=== PATIENT | female | born 1970 | race Caucasian/White ===

== ENCOUNTER 2017-01-24 16:52 | Emergency (ER) | payer OTHER ==
[2017-01-24 16:55] VITALS: BMI 29.2
[2017-01-24 17:06] VITALS: BP 121/81; PULSE 84; TEMP 98.3; O2SAT 100
--- NOTE | 2017-01-24 17:30 | C.PDOC ---
History Of Present Illness 46 y/o female presents to the emergency department complaining of nasal congestion. 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 Patient denies fever, throat pain, chest pain, shortness of breath, or other complaints. Time Seen by Provider: 01/24/17 17:21 Chief Complaint (Nursing): Shortness Of Breath History Per: Patient History/Exam Limitations: None Onset/Duration Of Symptoms: Days, Persistent Current Symptoms Are (Timing): Still Present Past Medical History Reviewed: Historical Data, Nursing Documentation, Vital Signs Vital Signs: Last Vital Signs Temp 98.3 F 01/24/17 17:42 Pulse 84 01/24/17 17:42 Resp 18 01/24/17 17:42 BP 121/81 01/24/17 17:42 Pulse Ox 100 01/24/17 17:42 - Medical History PMH: No Chronic Diseases Surgical History: No Surg Hx Family History: States: Unknown Family Hx - Social History Hx Tobacco Use: No Hx Alcohol Use: Yes Hx Substance Use: No - Immunization History Hx Tetanus Toxoid Vaccination: No Hx Influenza Vaccination: No Hx Pneumococcal Vaccination: No Review Of Systems Except As Marked, All Systems Reviewed And Found Negative. Constitutional: Negative for: Fever ENT: Positive for: Nose Congestion. Negative for: Throat Pain Cardiovascular: Negative for: Chest Pain Respiratory: Negative for: Shortness of Breath Physical Exam - Physical Exam Appears: Non-toxic, No Acute Distress Skin: Normal Color, Warm, Dry Head: Atraumatic, Normacephalic Eye(s): bilateral: Normal Inspection, PERRL Ear(s): Bilateral: Normal Nose: Normal, No Discharge, No Other (erythema) Oral Mucosa: Moist Throat: Normal, No Erythema, No Exudate Neck: Normal ROM Chest: Symmetrical Cardiovascular: Rhythm Regular Respiratory: Normal Breath Sounds, No Rales, No Rhonchi, No Wheezing Extremity: Normal ROM Neurological/Psych: Oriented x3, Normal Speech, Normal Cognition ED Course And Treatment ECG: Interpreted By Me ECG Rhythm: Sinus Rhythm ECG Interpretation: Normal Rate From EC (bpm) O2 Sat by Pulse Oximetry: 100 (ra) Pulse Ox Interpretation: Normal Reevaluation Time: 17:31 Reassessment Condition: Improved Medical Decision Making Medical Decision Making: works in an industrial freezer with food. nasal congestion none now. nasal decongestants educated normal exam. Deferred w/u with informed consent. Disposition Doctor Will See Patient In The: Office Counseled Patient/Family Regarding: Studies Performed, Diagnosis - Disposition Referrals: [facility] [Outside] Disposition: HOME/ ROUTINE Disposition Time: 17:29 Condition: GOOD Additional Instructions: compra medicamentos para quitar el congestion' nasal. Sigue en la [facility] necessario. Instructions: Decongestant/Expectorant (By mouth), Pseudoephedrine (By mouth) Print Language: MONGOLIAN - Clinical Impression Clinical Impression: Nasal congestion - Scribe Statement The provider has reviewed the documentation as recorded by the Scribe (Deandra Conteh) Provider Attestation: All medical record entries made by the Scribe were at my direction and personally dictated by me. I have reviewed the chart and agree that the record accurately reflects my personal performance of the history, physical exam, medical decision making, and the department course for this patient. I have also personally directed, reviewed, and agree with the discharge instructions and disposition.
[2017-01-24 17:42] VITALS: RESP 18
--- NOTE | 2017-01-26 06:30 | CARD ---
APPROVED REPORT EKG Measurement Heart [id number] <Conclusion> Normal sinus rhythm Incomplete right bundle branch block Borderline ECG
== END 2017-01-24 17:40 | disposition home or self-care (01) ==
LOC: C.ER 16:52
DX: R09.81 Nasal congestion (principal)

== ENCOUNTER 2017-02-25 11:31 | Emergency (ER) | payer SELFPAY ==
[2017-02-25 11:31] VITALS: BMI 29.2
[2017-02-25 11:38] VITALS: TEMP 98.1; O2SAT 98
[2017-02-25] MEDS ORDERED: Naproxen 550 mg Tab PO STA (12:07)
[2017-02-25] MEDS ORDERED: Naproxen 550 mg Tab PO ONE (12:20)
--- NOTE | 2017-02-25 12:41 | C.PDOC ---
History Of Present Illness A 46 year old female presents to the emergency room with complaints of left heel pain that started 2 weeks ago. Patient notes that the pain is worst with ambulation. Patient took Advil for pain relief last night. Patient denies any history of similar symptoms, any calf pain, no trauma, any sensory changes, numbness, weakness, or any other complaints. Time Seen by Provider: 02/25/17 11:42 Chief Complaint (Nursing): Lower Extremity Problem/Injury History Per: Patient History/Exam Limitations: no limitations Onset/Duration Of Symptoms: Other (1 week) Current Symptoms Are (Timing): Still Present Severity: Mild Recent travel outside of the [place]: No Past Medical History Reviewed: Historical Data, Nursing Documentation, Vital Signs Vital Signs: Last Vital Signs Temp 98.1 F 02/25/17 11:36 Pulse 85 02/25/17 11:36 Resp 16 02/25/17 11:36 BP 113/77 02/25/17 11:36 Pulse Ox 98 02/25/17 13:11 Family History: States: Unknown Family Hx - Social History Hx Tobacco Use: No Hx Alcohol Use: Yes Hx Substance Use: No - Immunization History Hx Tetanus Toxoid Vaccination: No Hx Influenza Vaccination: No Hx Pneumococcal Vaccination: No Review Of Systems Except As Marked, All Systems Reviewed And Found Negative. Constitutional: Negative for: Fever, Chills Gastrointestinal: Negative for: Nausea, Vomiting, Diarrhea Musculoskeletal: Positive for: Other (Left heel pain) Neurological: Negative for: Weakness, Numbness Physical Exam - Physical Exam Appears: Well, Non-toxic, No Acute Distress Skin: Normal Color, Warm, Dry, No Rash Head: Atraumatic, Normacephalic Eye(s): bilateral: Normal Inspection, EOMI Ear(s): Bilateral: Normal Nose: Normal Oral Mucosa: Moist Neck: Normal ROM, No Midline Cervical Tenderness, No Paracervical Tenderness, Supple Chest: Symmetrical Cardiovascular: Rhythm Regular Respiratory: Normal Breath Sounds, No Rales, No Rhonchi, No Wheezing Back: No CVA Tenderness, No Vertebral Tenderness, No Paraspinal Tenderness Extremity: Normal ROM, Tenderness (Tenderness at the posterior aspect of the left heel. No plantar tenderness. NO achilles tendon indent. 5/5 strength strength against resistance though exacerbates pain. No change in skin color. Strong pulses. Cap refill <2 sec.), No Pedal Edema, No Calf Tenderness, No Deformity, No Swelling, No Other (No erythema. No warmth.) Pulses: Left Dorsalis Pedis: Normal, Right Dorsalis Pedis: Normal Neurological/Psych: Oriented x3, Normal Speech, Normal Cognition, Normal Motor, Normal Sensation Gait: Steady ED Course And Treatment O2 Sat by Pulse Oximetry: 98 - Other Rad Left ankle X-Ray: Interpreted by Me, Viewed By Me Interpretation: Heel X-ray Impression: As read by me; no fractures or dislocations. Oesteophyte noted where pt has tenderness. Progress Note: Patient was given Naproxen. Bret wrap and Velcro splint applied by power lineman technician. On reassessment, patient is resting comfortably, and is in no acute distress. Patient is able to ambulate without difficulty and denies any other pain, numbness, weakness, or any other complaints. Patient was instructed to follow up with Ortho in 1-2 days for further evaluation. Disposition - Disposition Referrals: [facility] at [facility] [Outside] Franko Garland MD [Staff Provider] - Disposition: HOME/ ROUTINE Disposition Time: 12:42 Condition: STABLE Additional Instructions: Rest, ice and elevate the area. Follow up with bone doctor in 1-2 days. Return to ER if symptoms persist or worsen. Prescriptions: Naproxen [Naprosyn] 1 tab PO BID PRN #20 tab PRN Reason: Pain Instructions: Tendinitis (ED) Forms: Work Excuse Print Language: GUYANESE - Clinical Impression Clinical Impression: Tendonitis - Scribe Statement The provider has reviewed the documentation as recorded by the Raina Guzman Provider Scribe Attestation: All medical record entries made by the Raina were at my direction and personally dictated by me. I have reviewed the chart and agree that the record accurately reflects my personal performance of the history, physical exam, medical decision making, and the department course for this patient. I have also personally directed, reviewed, and agree with the discharge instructions and disposition.
--- NOTE | 2017-02-25 13:13 | RAD ---
PROCEDURE: Right Ankle Radiographs. HISTORY: pain COMPARISON: None FINDINGS: BONES: No acute displaced fracture. Degenerative changes. Calcaneal enthesophyte. JOINTS: No dislocation. SOFT TISSUES: Unremarkable. No evidence of radiopaque foreign body. OTHER FINDINGS: None. IMPRESSION: No acute displaced fracture, dislocation, or significant joint effusion identified. If symptoms persist or if there is clinical concern, x-ray follow-up in 7-10 days should be considered.
[2017-02-25 13:40] VITALS: BP 118/65; PULSE 78; RESP 18
== END 2017-02-25 13:35 | disposition home or self-care (01) ==
LOC: C.ER 11:31
DX: M77.52 Other enthesopathy of left foot and ankle (principal)

== ENCOUNTER 2017-06-25 12:43 | Emergency (ER) | payer OTHER ==
[2017-06-25 12:50] VITALS: BMI 30.2
[2017-06-25 12:53] VITALS: TEMP 98.2; O2SAT 98
--- NOTE | 2017-06-25 12:57 | C.PDOC ---
History Of Present Illness 46 year old female presents to the ED with complaints of pain to the bottom of her right foot that worsens when ambulating for the last four days. Patient has taken two Motrin tablets with no relief. She notes a similar pain in the back of the right foot three months prior but states pain is now in a different location. Patient denies trauma, numbness, or leg pain. Time Seen by Provider: 06/25/17 12:55 Chief Complaint (Nursing): Lower Extremity Problem/Injury History Per: Patient History/Exam Limitations: no limitations Onset/Duration Of Symptoms: Days (4 days ) Current Symptoms Are (Timing): Still Present Recent travel outside of the [place]: No Past Medical History Reviewed: Historical Data, Nursing Documentation, Vital Signs Vital Signs: Last Vital Signs Temp 98.2 F 06/25/17 12:50 Pulse 88 06/25/17 13:35 Resp 18 06/25/17 13:35 BP 110/65 06/25/17 13:35 Pulse Ox 98 06/25/17 15:50 Family History: States: Other Other Family History: Non-contributory. - Social History Hx Tobacco Use: No Hx Alcohol Use: Yes Hx Substance Use: No - Immunization History Hx Tetanus Toxoid Vaccination: No Hx Influenza Vaccination: No Hx Pneumococcal Vaccination: No Review Of Systems Constitutional: Negative for: Fever, Chills Cardiovascular: Negative for: Chest Pain Respiratory: Negative for: Shortness of Breath Gastrointestinal: Negative for: Nausea, Vomiting Musculoskeletal: Positive for: Foot Pain (right foot pain) Neurological: Negative for: Weakness, Numbness Physical Exam - Physical Exam Appears: Non-toxic, No Acute Distress Skin: Warm, Dry Head: Atraumatic, Normacephalic Eye(s): bilateral: Normal Inspection, EOMI Oral Mucosa: Moist Neck: Supple Chest: Symmetrical, No Deformity Extremity: Normal ROM, Tenderness (insertion site of plantar fascia ), No Pedal Edema, No Calf Tenderness, Capillary Refill (good capillary refill, less than two seconds), No Deformity, No Swelling, Other (no erythema to the right foot) Neurological/Psych: Oriented x3, Normal Speech, Normal Cognition, Normal Motor, Normal Sensation Gait: Steady ED Course And Treatment O2 Sat by Pulse Oximetry: 98 (room air ) Progress Note: Patient was given Toradol and rohit bandage was applied by CLINICAL NURSE REVIEWER. Disposition - Disposition Referrals: [facility] at [facility] [Outside] Disposition: HOME/ ROUTINE Disposition Time: 13:37 Condition: GOOD Additional Instructions: Please follow up with your doctor. Return to the ER for any worsening symptoms or for any other concerns. Prescriptions: Naproxen [Naprosyn] 500 mg PO Q12H PRN #10 tablet PRN Reason: Pain, Moderate (4-7) Instructions: Plantar Fasciitis (ED) Forms: Gen Discharge Inst Afghan, [facility] (Tongan) Print Language: YORUBA - Clinical Impression Clinical Impression: Plantar fasciitis - Scribe Statement The provider has reviewed the documentation as recorded by the Scribe Yolie Salmeron All medical record entries made by the Rudolphibe were at my direction and personally dictated by me. I have reviewed the chart and agree that the record accurately reflects my personal performance of the history, physical exam, medical decision making, and the department course for this patient. I have also personally directed, reviewed, and agree with the discharge instructions and disposition.
--- NOTE | 2017-06-25 13:22 | RAD ---
PROCEDURE: Right Foot Radiographs. HISTORY: pain plantar aspect COMPARISON: None. FINDINGS: BONES: No fracture. Posterior calcaneal cortical spurring - blending Achilles enthesophyte JOINTS: Minimal 1st metatarsal-phalangeal joint arthrosis SOFT TISSUES: Normal. OTHER FINDINGS: None. IMPRESSION: No fracture. Posterior calcaneal cortical spurring- blending Achilles tendon insertional enthesophyte
[2017-06-25 13:37] VITALS: BP 110/65; PULSE 88; RESP 18
== END 2017-06-25 13:38 | disposition home or self-care (01) ==
LOC: C.ER 12:43
DX: M72.2 Plantar fascial fibromatosis (principal)
CPT/HCPCS: 73630; 96372; 99284; J1885

== ENCOUNTER 2017-11-11 16:19 | Emergency (ER) | payer SELFPAY ==
[2017-11-11 16:19] VITALS: BMI 30.2
[2017-11-11] MEDS ORDERED: Sodium Chloride 0.9% 1,000 ML IV STA (17:48)
--- NOTE | 2017-11-11 17:56 | C.PDOC ---
History Of Present Illness <Hannah Mosquera - Last Filed: 11/11/17 19:06> <Merline Gaines - Last Filed: 11/11/17 20:07> <Zafar Stevens - Last Filed: 11/12/17 16:32> 46 year old female presents to ED for evaluation of shortness of breath for the past month. Pt also states that she was stung by an insect to the right side of her abdomen, and has developed an area of redness and pain to the same region. Notes that area is growing larger in size and is more painful. Otherwise, denies cough, sputum, chest pain, n/v/d, or fever. Translated [place]er by Gisselle Ramos (Hannah Mosquera) History Per: Patient, Advertising Assistant History/Exam Limitations: no limitations, language barrier (manager sales training used) Onset/Duration Of Symptoms: Days Current Symptoms Are (Timing): Still Present Associated Symptoms: denies: Sweating, Chest Pain, Bloody Cough, Productive Cough, Heart Racing, Leg/Calf Pain, Ankle/Leg Swelling, Dizziness, Light- headedness, Tingling In Hands Or Face, Musle Spasms In Hands Or Feet Recent travel outside of the [place]: No Additional History Per: Patient <Hannah Mosquera - Last Filed: 11/11/17 19:06> <Merline Gaines - Last Filed: 11/11/17 20:07> <Zafar Stevens M - Last Filed: 11/12/17 16:32> Time Seen by Provider: 11/11/17 16:46 Chief Complaint (Nursing): Shortness Of Breath Past Medical History Reviewed: Historical Data, Nursing Documentation, Vital Signs Family History: States: Unknown Family Hx - Social History Hx Tobacco Use: No Hx Alcohol Use: Yes Hx Substance Use: No - Immunization History Hx Tetanus Toxoid Vaccination: No Hx Influenza Vaccination: No Hx Pneumococcal Vaccination: No <Hannah Mosquera - Last Filed: 11/11/17 19:06> Vital Signs: Last Vital Signs Temp 97.9 F 11/11/17 20:22 Pulse 85 11/11/17 20:22 Resp 20 11/11/17 20:22 BP 119/75 11/11/17 20:22 Pulse Ox 100 11/11/17 20:22 Review Of Systems Except As Marked, All Systems Reviewed And Found Negative. Constitutional: Negative for: Fever, Chills Cardiovascular: Negative for: Chest Pain, Palpitations, Light Headedness Respiratory: Positive for: Shortness of Breath. Negative for: Cough, Hemoptysis , Sputum Gastrointestinal: Negative for: Nausea, Vomiting, Diarrhea, Constipation Skin: Positive for: Other (area of redness to abdomen) Neurological: Negative for: Headache, Dizziness <Hannah Mosquera - Last Filed: 11/11/17 19:06> Physical Exam - Physical Exam Appears: Non-toxic, No Acute Distress Skin: Warm, Dry, Other (single pustule with mild surrounding erythema about 3cm in diameter) Head: Atraumatic, Normacephalic Eye(s): bilateral: Normal Inspection Oral Mucosa: Moist Neck: Supple Cardiovascular: Rhythm Regular, No Murmur Respiratory: Decreased Breath Sounds (bilaterally), No Accessory Muscle Use, No Rales, No Rhonchi, No Wheezing Gastrointestinal/Abdominal: Soft, No Tenderness Extremity: Normal ROM, No Pedal Edema, No Deformity Neurological/Psych: Oriented x3, Normal Speech <Hannah Mosquera - Last Filed: 11/11/17 19:06> ED Course And Treatment - Laboratory Results Result Diagrams: 11/11/17 18:48 11/11/17 18:48 O2 Sat by Pulse Oximetry: 98 (RA) Pulse Ox Interpretation: Normal - Radiology CXR: Interpreted by Me, Viewed By Me CXR Interpretation: Yes: No Acute Disease Progress Note: Blood work, UA, abdomen ultrasound, CXR ordered and reviewed. Patient was given IV fluids. On reassessment, patient is resting comfortably with no wheezing, chest pain, or retractions. Breath sounds have improved. Patient is alert and oriented x 3. <Hannah Mosquera - Last Filed: 11/11/17 19:06> - Laboratory Results Result Diagrams: 11/11/17 18:48 11/11/17 18:48 Pulse Ox Interpretation: Normal Progress Note: Pt states she feels better and wants to go home, Speaking in complete sentences Reevaluation Time: 20:07 Reassessment Condition: Improved <Merline Gaines - Last Filed: 11/11/17 20:07> - Laboratory Results Result Diagrams: 11/11/17 18:48 11/11/17 18:48 <Zafar Stevens - Last Filed: 11/12/17 16:32> Medical Decision Making <Hannah Mosquera - Last Filed: 11/11/17 19:06> <Merline Gaines - Last Filed: 11/11/17 20:07> <Zafar Stevens - Last Filed: 11/12/17 16:32> Medical Decision Making: patient was s/o to Dr. Gaines at 1900 pending labs, reevaluation and disposition (Zafar Stevens) Disposition - Disposition Disposition Time: 19:06 <Hannah Mosquera - Last Filed: 11/11/17 19:06> Counseled Patient/Family Regarding: Studies Performed, Diagnosis, Need For Followup, Rx Given <Merline Gaines - Last Filed: 11/11/17 20:07> <Zafar Stevens - Last Filed: 11/12/17 16:32> - Disposition Referrals: [facility] [Outside] [facility] [Outside] Disposition: HOME/ ROUTINE Condition: FAIR Additional Instructions: Please return if symptoms recur Prescriptions: Albuterol HFA [Ventolin HFA 90 mcg/actuation (8 g)] 2 puff IH [id number] #1 puff Prednisone [Deltasone] 20 mg PO DAILY #5 tablet Instructions: Reactive Airways Disease (DC), Dyspnea (GEN) Forms: Testin (Togolese) Print Language: CAMBODIAN - Clinical Impression Clinical Impression: SOB (shortness of breath), RUQ abdominal pain - PA / ENVIRONMENTAL SERVICES AIDE / Resident Statement MD/DO has reviewed & agrees with the documentation as recorded. - Scribe Statement The provider has reviewed the documentation as recorded by the Scribe <Hannah Mosquera - Last Filed: 11/11/17 19:06> <Merline Gaines - Last Filed: 11/11/17 20:07> <Zafar Stevens - Last Filed: 11/12/17 16:32> - Scribe Statement Zeenat Martinez All medical record entries made by the Scribe were at my direction and personally dictated by me. I have reviewed the chart and agree that the record accurately reflects my personal performance of the history, physical exam, medical decision making, and the department course for this patient. I have also personally directed, reviewed, and agree with the discharge instructions and disposition. (Hannah Mosquera) Physician Patient Turnover Patient Signed Over To: Merline Gaines Handoff Comments: labs and dispo are pending <Hannah Mosquera - Last Filed: 11/11/17 19:06>
[2017-11-11] MEDS ORDERED: Sodium Chloride 0.9% 1,000 ML ONE (18:11)
--- NOTE | 2017-11-11 18:18 | RAD ---
HISTORY: SOB, s/p hysterectomy COMPARISON: 12/21/2015. TECHNIQUE: Chest PA and lateral FINDINGS: LUNGS: No active pulmonary disease. PLEURA: No significant pleural effusion identified. No pneumothorax apparent. CARDIOVASCULAR: Normal. OSSEOUS STRUCTURES: No significant abnormalities. VISUALIZED UPPER ABDOMEN: Normal. OTHER FINDINGS: None. IMPRESSION: No active disease. No significant interval change compared to the prior examination(s).
--- NOTE | 2017-11-11 18:41 | US ---
HISTORY: Pain RUQ, right flank COMPARISON: None. TECHNIQUE: Sonographic evaluation of the right upper quadrant of the abdomen. FINDINGS: LIVER: Measures 12.0 cm in length. Patent portal vein. Portal venous flow: Hepatopetal. Unremarkeable echogenicity of the liver parenchyma. No mass. No intrahepatic bile duct dilatation. GALLBLADDER: Unremarkable. No gallstones. COMMON BILE DUCT: Measures 3.7 mm. No stones. No dilatation. PANCREAS: Unremarkable as visualized. No mass. No ductal dilatation. RIGHT KIDNEY: Measures 4.4 x 9.9 cm in length. Normal echogenicity. No calculus, mass, or hydronephrosis. AORTA: No aneurysmal dilatation. IVC: Unremarkable. OTHER FINDINGS: None . IMPRESSION: No significant or acute findings to account for/ related to the clinical presentation.
[2017-11-11 18:52] LABS: BASO # 0.1 K/uL (0.0-0.2); BASO % 0.6 % (0.0-2.0); EOS # 0.6 K/uL (0.0-0.7); EOS % 5.2 % (0.0-4.0); HEMOGLOBIN 14.2 g/dL (11.0-16.0); LYMPH % 28.2 % (20.0-40.0); MEAN CELL VOLUME 81.4 fL (81.0-99.0); MEAN CORPUSCULAR HEMOGLOBIN 26.9 pg (27.0-31.0); MEAN PLATELET VOLUME 9.1 fL (7.2-11.7); MONO # 0.6 K/uL (0.0-0.8); MONO % 5.2 % (0.0-10.0); NEUT # 6.6 K/uL (1.8-7.0); NEUT % 60.8 % (50.0-75.0); NRBC % 0.1 % (0.0-2.0); RBC 5.29 Mil/uL (3.80-5.20); RED CELL DISTRIBUTION WIDTH 13.6 % (11.5-14.5); WHITE BLOOD COUNT 10.8 K/uL (4.8-10.8)
[2017-11-11 18:59] LABS: INR 1.1; PARTIAL THROMBOPLASTIN TIME 35 SECONDS (21-34); PROTHROMBIN TIME 13.1 SECONDS (9.7-12.2)
[2017-11-11 19:02] LABS: SQUAMOUS EPITHIAL 3 /hpf (0-5); URINE BACTERIA RARE (<OCC); URINE BILIRUBIN NEGATIVE (NEGATIVE); URINE BLOOD NEGATIVE (NEGATIVE); URINE CLARITY Clear (Clear); URINE COLOR Yellow (YELLOW); URINE GLUCOSE (UA) NORMAL (Normal); URINE LEUKOCYTE ESTERASE NEG Leu/uL (Negative); URINE NITRATE NEGATIVE (NEGATIVE); URINE PROTEIN NEGATIVE (NEGATIVE); URINE UROBILINOGEN NORMAL mg/dL (0.2-1.0)
[2017-11-11 19:03] LABS: ALB/GLOB RATIO 1.2 (1.0-2.1); ALBUMIN 4.2 g/dL (3.5-5.0); ALT/SGPT 40 U/L (9-52); AMYLASE 78 U/L (30-110); AST/SGOT 28 U/L (14-36); BLOOD UREA NITROGEN 19 mg/dL (7-17); CALCIUM 8.8 mg/dl (8.6-10.4); GFR AFRICAN-AMERICAN > 60; GFR NON-AFRICAN AMERICAN > 60; LIPASE 78 U/L (23-300)
[2017-11-11 19:11] LABS: D DIMER < 200 ng/mlDDU (0-243)
[2017-11-11 19:14] LABS: CK-MB 1.48 ng/mL (0.0-3.38)
[2017-11-11 20:23] VITALS: BP 119/75; PULSE 85; RESP 20; TEMP 97.9; O2SAT 100
== END 2017-11-11 20:32 | disposition home or self-care (01) ==
LOC: C.ER 16:19
DX: R06.02 Shortness of breath (principal); R10.11 Right upper quadrant pain
CPT/HCPCS: 71046; 76705; 80053; 81001; 82150; 82550; 82553; 83690; 84484; 85025; 85378; 85610; 85730; 96360; 99285; J7040

== ENCOUNTER 2018-02-13 09:04 | Emergency (ER) | payer OTHER ==
[2018-02-13 09:04] VITALS: BMI 30.2
[2018-02-13 09:17] VITALS: BP 127/83; PULSE 81; RESP 19; TEMP 98.2; O2SAT 99
[2018-02-13] MEDS ORDERED: Amoxicillin-Clav 875-125 mg Tab PO STA (09:37)
--- NOTE | 2018-02-13 09:38 | C.PDOC ---
History Of Present Illness 47-year-old female, comes in for evaluation of right lower eyelid pain and swelling that gradually developed over past two days. Patient states that symptoms started after she scratched her eye. Denies recent illness, fever, headache, dizziness, vertigo, focal deficits, blurry vision, floaters, double vision, FB sensation, eye discharges, contact use, denies any other visual changes. No other complaints at this time. Ambulate to ED for evaluation, not in any apparent distress. Time Seen by Provider: 02/13/18 09:25 Chief Complaint (Nursing): Eye Problem History Per: Patient History/Exam Limitations: no limitations Current Symptoms Are (Timing): Still Present Severity: Moderate Past Medical History Reviewed: Historical Data, Nursing Documentation, Vital Signs Vital Signs: Last Vital Signs Temp 98.2 F 02/13/18 09:13 Pulse 81 02/13/18 09:13 Resp 19 02/13/18 09:13 BP 127/83 02/13/18 09:13 Pulse Ox 99 02/13/18 12:28 Family History: States: No Known Family Hx - Social History Hx Tobacco Use: No Hx Alcohol Use: Yes Hx Substance Use: No - Immunization History Hx Tetanus Toxoid Vaccination: No Hx Influenza Vaccination: No Hx Pneumococcal Vaccination: No Review Of Systems Constitutional: Negative for: Fever, Chills Eyes: Positive for: Pain (+swelling lower eyelid, right.). Negative for: Vision Change Respiratory: Negative for: Cough Musculoskeletal: Negative for: Neck Pain Skin: Negative for: Rash Physical Exam - Physical Exam Appears: Well, Non-toxic, No Acute Distress Skin: Normal Color, Warm, No Rash, No Ecchymosis Head: Atraumatic, Normacephalic Eye(s): bilateral: PERRL, EOMI (no pain or limitation on extraocular movement B/ L), right: Other (mild edema and erythema mid inner lower eyelid likely c/w chalazion. Mild infraorbital edema and erythema. NO eye discahrges or conj injcetion. NO periorbital edema or erythema.) Ear(s): Bilateral: Normal Nose: No Flaring, No Discharge Oral Mucosa: Moist, No Drooling Tongue: Normal Appearing Lips: Normal Appearing Throat: No Erythema, No Drooling Neck: Trachea Midline, Supple Lymphatic: No Adenopathy (cervical ) Chest: Symmetrical Neurological/Psych: Oriented x3, Normal Speech ED Course And Treatment O2 Sat by Pulse Oximetry: 99 (RA) Pulse Ox Interpretation: Normal Progress Note: On re-eval, pt is afebrile, hemodynamicaly stable. Non-toxic. PulseOx 99% RA. Head: AT/NC. Neck: SUpple, (-) meningeal sign. Right eye: mild localized tender inner lower lid edema, erythema, likely c/w chalazion with mild infraorbital edema. NO pain or limitation on extraocular movement. NO evidence of periorbital cellulitis. VA: R 20/20, L 20/30. B/L 20/20 w/o correction. ENT: no acute findings. Neurologicaly intact. Pt advised onc ourse of ds. ref. to f/u with Opht in 1-2 days for re-eval. return to ED if any worsening or new changes. Disposition Counseled Patient/Family Regarding: Diagnosis, Need For Followup, Rx Given - Disposition Referrals: Gael De Anda [Staff Provider] - Disposition: HOME/ ROUTINE Disposition Time: 09:38 Condition: STABLE Additional Instructions: Warm compresses to Right eye with black tea bag twice daily for 5 minutes Take medication as prescribed Follow up with Ophthalmology in 1-2 days for re-evaluation. Return to ED if any worsening or new changes. Prescriptions: Amoxicillin/Clavulanate [Augmentin 875 MG-125 MG] 1 tab PO BID #14 tab Neomycin/Polymyxin/Dexamethaso [Dexamethasone/Neomycin/Polymyxin 5 Ml] 1 drop RIGHTEYE Q6 #1 bottle Instructions: Chalazion Forms: [facility] (Telugu), Work Excuse Print Language: FRENCH - Clinical Impression Clinical Impression: Chalazion - Scribe Statement The provider has reviewed the documentation as recorded by the Scribe (Jfefrey Garland) All medical record entries made by the Scribe were at my direction and personally dictated by me. I have reviewed the chart and agree that the record accurately reflects my personal performance of the history, physical exam, medical decision making, and the department course for this patient. I have also personally directed, reviewed, and agree with the discharge instructions and disposition.
[2018-02-13] MEDS ORDERED: Amoxicillin-Clav 875-125 mg Tab PO ONE (09:43)
== END 2018-02-13 09:53 | disposition home or self-care (01) ==
LOC: C.ER 09:04
DX: H00.12 Chalazion right lower eyelid (principal)

== ENCOUNTER 2018-03-28 07:14 | Emergency (ER) | payer OTHER ==
[2018-03-28 07:33] VITALS: RESP 18
[2018-03-28 07:37] VITALS: BMI 29.2
--- NOTE | 2018-03-28 08:22 | C.PDOC ---
History Of Present Illness 47-year-old female, presents to the emergency department with complaints of a growth to index finger on left hand. 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 No other complaints at this time. Chief Complaint (Nursing): Upper Extremity Problem/Injury History Per: Patient History/Exam Limitations: no limitations Current Symptoms Are (Timing): Still Present Past Medical History Reviewed: Historical Data, Nursing Documentation, Vital Signs Vital Signs: Last Vital Signs Temp 98.1 F 03/28/18 08:30 Pulse 67 03/28/18 08:30 Resp 18 03/28/18 08:30 BP 125/84 03/28/18 08:30 Pulse Ox 96 03/28/18 11:02 Family History: States: No Known Family Hx - Social History Hx Tobacco Use: No Hx Alcohol Use: Yes Hx Substance Use: No - Immunization History Hx Tetanus Toxoid Vaccination: No Hx Influenza Vaccination: No Hx Pneumococcal Vaccination: No Review Of Systems Constitutional: Negative for: Fever, Chills Skin: Positive for: Lesions (Left index finger) Neurological: Negative for: Weakness, Numbness Physical Exam - Physical Exam Appears: Non-toxic, No Acute Distress Skin: Normal Color, Warm, Dry, No Rash Head: Atraumatic, Normacephalic Eye(s): bilateral: Normal Inspection, PERRL Nose: Normal Oral Mucosa: Moist Lips: Normal Appearing Neck: Normal ROM Respiratory: No Accessory Muscle Use (no acute respiratory distress) Extremity: Normal ROM, Tenderness (Left hand, 2nd digit with a firm, wart-like lesion. No erythema, fluctuance or induration), Capillary Refill (<2 seconds), No Deformity, No Swelling ED Course And Treatment O2 Sat by Pulse Oximetry: 96 (RA) Pulse Ox Interpretation: Normal - Other Rad XR HAND X-Ray: Viewed By Me, Read By Radiologist Interpretation: Accession No. : [id number]. Patient Name / ID : ELAINE GAMEZ / [id number]. Exam Date : 03/28/2018 07:55:35 ( Approved ). Study Comment : Sex / Age : F / 47Y. Creator : Timbo Noble MD. Dictator : Timbo Noble MD. Disability Liaison Officer : Crm Coordinator : Timbo Noble MD. Approver2 : Report Date : 03/28/2018 10:05:30. My Comment : . PROCEDURE: Left Index finger radiographs. HISTORY: r/o FB. COMPARISON: None. TECHNIQUE: AP radiograph of the left hand, as well as spot oblique and lateral images of index finger were obtained. FINDINGS: LEFT INDEX FINGER: Normal left index finger, without fracture or focal lesion. Remainder of the left hand (as seen on the AP view) grossly intact. JOINTS: Normal. SOFT TISSUES: Normal. OTHER FINDINGS: None. IMPRESSION: Normal left index finger radiographs. Medical Decision Making Medical Decision Making: Patient will be discharged for outpatient follow up with PMD. All questions answered. Disposition - Disposition Referrals: Roberto Aparicio MD [Staff Provider] - [facility] [Outside] Disposition: HOME/ ROUTINE Disposition Time: 08:19 Condition: STABLE Additional Instructions: Follow up with hand specialist or Washer Engineer within 1-2 days. Return to0 ED if feel worse. Instructions: Skin Warts, Warts on the Skin, Salicylic Acid Forms: [employer] (Sao Tomean) Print Language: SAUDI ARABIAN - Clinical Impression Clinical Impression: Cutaneous wart - Scribe Statement The provider has reviewed the documentation as recorded by the Scribe (Jeffrey Garland) All medical record entries made by the Scribe were at my direction and personally dictated by me. I have reviewed the chart and agree that the record accurately reflects my personal performance of the history, physical exam, medical decision making, and the department course for this patient. I have also personally directed, reviewed, and agree with the discharge instructions and disposition.
[2018-03-28 08:30] VITALS: BP 125/84; PULSE 67; TEMP 98.1
[2018-03-28 09:38] VITALS: O2SAT 96
--- NOTE | 2018-03-28 10:07 | RAD ---
PROCEDURE: Left Index finger radiographs. HISTORY: r/o FB COMPARISON: None. TECHNIQUE: AP radiograph of the left hand, as well as spot oblique and lateral images of index finger were obtained. FINDINGS: LEFT INDEX FINGER: Normal left index finger, without fracture or focal lesion. Remainder of the left hand (as seen on the AP view) grossly intact. JOINTS: Normal. SOFT TISSUES: Normal. OTHER FINDINGS: None. IMPRESSION: Normal left index finger radiographs.
== END 2018-03-28 08:39 | disposition home or self-care (01) ==
LOC: C.ER 07:14
DX: B07.9 Viral wart, unspecified (principal)

== ENCOUNTER 2018-05-23 16:38 | Emergency (ER) | payer OTHER ==
[2018-05-23 16:38] VITALS: BMI 29.2
[2018-05-23 16:53] VITALS: BP 93/60; PULSE 80; RESP 20; TEMP 98.3; O2SAT 100
--- NOTE | 2018-05-23 17:49 | C.PDOC ---
History Of Present Illness 47 year old female patient presents to the ER with back pain that radiates to the groin and legs for 5 days. Patient states it is a positional pain. Also notes dysuria and urinary frequency. Patient denies fever, changes in sensation and motor, abdominal pain, vaginal bleeding or discharge, and urinary/bowl incontinence. Time Seen by Provider: 05/23/18 17:18 Chief Complaint (Nursing): Back Pain History Per: Patient History/Exam Limitations: no limitations Onset/Duration Of Symptoms: Days (x5) Current Symptoms Are (Timing): Still Present Associated Symptoms: Other (dysuria and urinary frequency). denies: Incontinence Exacerbating Factor(s): Other (positioning) Past Medical History Reviewed: Historical Data, Nursing Documentation, Vital Signs Vital Signs: Last Vital Signs Temp 98.3 F 05/23/18 16:50 Pulse 80 05/23/18 16:50 Resp 20 05/23/18 16:50 BP 93/60 L 05/23/18 16:50 Pulse Ox 100 05/23/18 19:46 Family History: States: Unknown Family Hx - Social History Hx Tobacco Use: No Hx Alcohol Use: Yes Hx Substance Use: No - Immunization History Hx Tetanus Toxoid Vaccination: No Hx Influenza Vaccination: No Hx Pneumococcal Vaccination: No Review Of Systems Except As Marked, All Systems Reviewed And Found Negative. Constitutional: Negative for: Fever Gastrointestinal: Negative for: Abdominal Pain Genitourinary: Positive for: Dysuria, Frequency. Negative for: Incontinence Musculoskeletal: Positive for: Back Pain (radiates to groin and leg) Neurological: Negative for: Other (changes in sensation or motor) Physical Exam - Physical Exam Appears: Well, Non-toxic, No Acute Distress Skin: Normal Color, Warm, Dry Head: Atraumatic, Normacephalic Eye(s): bilateral: Normal Inspection, EOMI Nose: Normal Oral Mucosa: Moist Neck: Normal ROM, Supple Chest: Symmetrical, No Deformity Cardiovascular: Rhythm Regular Respiratory: Normal Breath Sounds Gastrointestinal/Abdominal: Soft, No Tenderness Back: No CVA Tenderness, No Vertebral Tenderness, Paraspinal Tenderness (lower paralumbar tendernes ) Extremity: Normal ROM (x4) Extremity: Bilateral: Atraumatic Neurological/Psych: Oriented x3, Normal Speech, Normal Motor, Normal Sensation Gait: Steady ED Course And Treatment O2 Sat by Pulse Oximetry: 100 (RA) Pulse Ox Interpretation: Normal - Other Rad LS spine XR X-Ray: Read By Radiologist Interpretation: Accession No. : [id number]. Patient Name / ID : ELAINE GAMEZ / [id number]. Exam Date : 05/23/2018 18:29:20 ( Approved ). Study Comment : Sex / Age : F / 47Y. Creator : Suzan Howell. Dictator : Portillo Wilson MD. Shop Coordinator : Cage/Vault Supervisor : Portillo Wilson MD. Approver2 : Report Date : 05/23/2018 18:39:40. My Comment : . Date of service: 05/23/2018. PROCEDURE: Radiographs of the Lumbar Spine. HISTORY: pain. COMPARISON: No prior. FINDINGS: BONES: Normal alignment. No listhesis. No fracture. DISC SPACES: Unremarkable. OTHER FINDINGS: None. IMPRESSION: Unremarkable radiographs of the lumbar spine. Progress Note: Plans: -- Naproxen. -- UCx. -- LS Spine XR. -- UA. On re- evaluation, patient is resting comfortably and tolerating PO. no change in sensation or incontinence. Discussed with ot UA shows no UTI. Pt will be given abx, based on clinical uti and instructed to fill if symtpoms persist. Patient is advised tof/u with pmd in 1-2 days or return to ER if symtpoms persist or worsen. Maintenance Director used to ensure understanding. Disposition - Disposition Referrals: [facility] [Outside] Disposition: HOME/ ROUTINE Disposition Time: 18:54 Condition: STABLE Additional Instructions: Vaya a millan mdico o la clnica en 2-5 no sin falta, para mas evaluacin. [place] los medicamentos eris indicado. Volver a la deng de emergencia en cualquier momento si los sntomas persisten o empeoran. Prescriptions: Naproxen [Naprosyn] 1 tab PO BID PRN #20 tab PRN Reason: Pain Nitrofurantoin Macrocrystals [Macrobid] 1 cap PO BID #10 cap Instructions: Low Back Pain (DC) Forms: [employer] (Tongan) Print Language: TANZANIAN - Clinical Impression Clinical Impression: Low back pain - PA / PARTITION SETTER / Resident Statement MD/ has reviewed & agrees with the documentation as recorded. - Scribe Statement The provider has reviewed the documentation as recorded by the Raina Lopez Do All medical record entries made by the Scribe were at my direction and personally dictated by me. I have reviewed the chart and agree that the record accurately reflects my personal performance of the history, physical exam, medical decision making, and the department course for this patient. I have also personally directed, reviewed, and agree with the discharge instructions and disposition.
[2018-05-23] MEDS ORDERED: Naproxen 550 mg Tab PO STA (17:51)
[2018-05-23 18:12] LABS: SQUAMOUS EPITHIAL 7 /hpf (0-5); URINE BILIRUBIN NEGATIVE (NEGATIVE); URINE BLOOD NEGATIVE (NEGATIVE); URINE CLARITY Hazy (Clear); URINE COLOR Yellow (YELLOW); URINE GLUCOSE (UA) NORMAL (Normal); URINE LEUKOCYTE ESTERASE NEG Leu/uL (Negative); URINE PROTEIN NEGATIVE (NEGATIVE); URINE UROBILINOGEN NORMAL mg/dL (0.2-1.0)
[2018-05-23 18:14] LABS: HCG,QUALITATIVE URINE NEGATIVE (NEGATIVE)
[2018-05-23] MEDS ORDERED: Naproxen 550 mg Tab PO ONE (18:48)
--- NOTE | 2018-05-23 18:54 | RAD ---
Date of service: 05/23/2018 PROCEDURE: Radiographs of the Lumbar Spine. HISTORY: pain COMPARISON: No prior. FINDINGS: BONES: Normal alignment. No listhesis. No fracture. DISC SPACES: Unremarkable. OTHER FINDINGS: None. IMPRESSION: Unremarkable radiographs of the lumbar spine.
== END 2018-05-23 19:00 | disposition home or self-care (01) ==
LOC: C.ER 16:38
DX: M54.5 Low back pain (principal)

== ENCOUNTER 2018-09-06 02:41 | Emergency (ER) | payer SELFPAY ==
[2018-09-06 02:42] VITALS: BMI 29.2
[2018-09-06 02:51] VITALS: RESP 16; O2SAT 99
--- NOTE | 2018-09-06 03:52 | C.PDOC ---
History Of Present Illness 47 year old female presents to the ED complaining of left should pain radiating to the left side of her neck and left arm ongoing for 2 days. Reports pain is reproducible with movement. Denies any trauma or injuries. Denies any weakness, numbness, or tingling. Chief Complaint (Nursing): Upper Extremity Problem/Injury History Per: Patient History/Exam Limitations: no limitations Onset/Duration Of Symptoms: Days (2) Current Symptoms Are (Timing): Still Present Quality: "Pain" Exacerbating Factor(s): Movement Past Medical History Reviewed: Historical Data, Nursing Documentation, Vital Signs Vital Signs: Last Vital Signs Temp 98.0 F 09/06/18 02:49 Pulse 90 09/06/18 02:49 Resp 16 09/06/18 02:49 BP 142/91 H 09/06/18 02:49 Pulse Ox 99 09/06/18 02:49 - Medical History PMH: No Chronic Diseases Other Surgeries: Hx of surgeries Family History: States: No Known Family Hx - Social History Hx Tobacco Use: No Hx Alcohol Use: Yes Hx Substance Use: No - Immunization History Hx Tetanus Toxoid Vaccination: No Hx Influenza Vaccination: No Hx Pneumococcal Vaccination: No Review Of Systems Except As Marked, All Systems Reviewed And Found Negative. Musculoskeletal: Positive for: Neck Pain (left sided ), Shoulder Pain (left ), Arm Pain (left ) Neurological: Negative for: Weakness, Numbness Physical Exam - Physical Exam Appears: Non-toxic Skin: Warm, Dry, No Rash Head: Normacephalic Eye(s): bilateral: Normal Inspection Nose: Normal Oral Mucosa: Moist Neck: Normal ROM, Supple Chest: Symmetrical Extremity: No Normal ROM (decreased ROM secondary to pain of left shoulder ), Tenderness (mild tenderness to lateral neck muscles and left shoulder ), No Deformity, No Swelling Neurological/Psych: Oriented x3, Normal Speech, Normal Motor, Normal Sensation, Normal Reflexes Gait: Steady ED Course And Treatment ECG: Interpreted By Me, Viewed By Me ECG Rhythm: Sinus Rhythm ECG Interpretation: No Acute Changes Rate From EC O2 Sat by Pulse Oximetry: 99 (RA) Pulse Ox Interpretation: Normal - Other Rad XR left shoulder/neck X-Ray: Interpreted by Me, Viewed By Me Interpretation: Images show DJD on neck, left shoulder XR is negative. Progress Note: EKG, left shoulder and C-spine XR ordered and reviewed. Left shoulder XR is negative. C-spine XR shows DJD. Patient given Toradol. On reevaluation, patient reports feeling better. Disposition - Disposition Referrals: [facility] [Outside] Disposition: HOME/ ROUTINE Disposition Time: 03:52 Condition: STABLE Additional Instructions: Follow up in clinic within 1-2 days. Return to ED if feel worse. Prescriptions: Ibuprofen [Motrin Tab] 600 mg PO Q8 #30 tab Methocarbamol [Robaxin-750] 750 mg PO TID #30 tab Instructions: Shoulder Pain (DC) Forms: [employer] (Malay) - Clinical Impression Clinical Impression: Shoulder pain - PA / WEAVING INSPECTOR / Resident Statement MD/DO has reviewed & agrees with the documentation as recorded. - Scribe Statement The provider has reviewed the documentation as recorded by the Scribe Zahra Fonseca All medical record entries made by the Rudolphibchava were at my direction and personally dictated by me. I have reviewed the chart and agree that the record accurately reflects my personal performance of the history, physical exam, medical decision making, and the department course for this patient. I have also personally directed, reviewed, and agree with the discharge instructions and disposition.
[2018-09-06 04:10] VITALS: BP 138/87; PULSE 81; TEMP 98.2
--- NOTE | 2018-09-06 09:33 | RAD ---
Date of service: 09/06/2018 PROCEDURE: Radiographs of the Left Shoulder HISTORY: pain COMPARISON: No prior. FINDINGS: BONES: Normal. No evidence of acute displaced fracture nor dislocation JOINTS: Minor degenerative changes right left acromioclavicular joint.. SOFT TISSUES: Normal. OTHER FINDINGS: None. IMPRESSION: No evidence of acute displaced fracture nor dislocation minor DJD left acromioclavicular joint.
--- NOTE | 2018-09-06 09:40 | RAD ---
Date of service: 09/06/2018 PROCEDURE: Cervical Spine Radiographs. Examination is limited HISTORY: Pain. COMPARISON: None available. FINDINGS: The examination is limited due to incomplete visualization of the inferior aspect of the C6 segment as well as C6-C7 interspace see C7 and T1 segments on the lateral projection due to overlying shoulder artifact. Additionally, there is obscuration of the odontoid by overlying incisor teeth and occiput in the open-mouth projection BONES: No definitive evidence of acute fracture within limitation of the exam.. There straightening of the normal cervical lordosis which could be due to patient positioning or muscle spasm DISC SPACES: Mild moderate multilevel degenerative spondylosis of the cervical spine SOFT TISSUES: Normal. No prevertebral soft tissue swelling. OTHER FINDINGS: None. IMPRESSION: Limited study demonstrating no definitive fracture. Straightening of the normal cervical lordosis possibly due to patient positioning or muscle spasm
--- NOTE | 2018-09-08 13:49 | CARD ---
APPROVED REPORT Date of service: 09/06/2018 EKG Measurement Heart [id number] <Conclusion> Normal sinus rhythm Prolonged QT Abnormal ECG
== END 2018-09-06 04:10 | disposition home or self-care (01) ==
LOC: C.ER 02:41
DX: M25.512 Pain in left shoulder (principal)
CPT/HCPCS: 72040; 73030; 93005; 96372; 99283; J1885

== ENCOUNTER 2019-01-27 11:15 | Emergency (ER) | payer SELFPAY ==
[2019-01-27 11:15] VITALS: BMI 29.2
[2019-01-27 11:32] VITALS: BP 123/85; PULSE 71; RESP 17; TEMP 98.8; O2SAT 99
[2019-01-27] MEDS ORDERED: Naproxen 550 mg Tab PO STA (13:01)
[2019-01-27] MEDS ORDERED: Naproxen 550 mg Tab PO ONE (13:09)
--- NOTE | 2019-01-27 13:12 | C.PDOC ---
History Of Present Illness 48 year old female presents to ED with complaint of headache and generalized body aches including arms and legs past 3 days. Patient also she had throat pain the day prior that has since resolved. She states that she took an ibuprofen for pain. Patient states that she has also been experiencing chills. Patient denies nausea, vomiting, fever, sore throat, SOB, chest pain, and cough. Chief Complaint (Nursing): Lower Extremity Problem/Injury History Per: Patient History/Exam Limitations: no limitations Onset/Duration Of Symptoms: Days (3) Current Symptoms Are (Timing): Still Present Past Medical History Reviewed: Historical Data, Nursing Documentation, Vital Signs Vital Signs: Last Vital Signs Temp 98.8 F 01/27/19 11:31 Pulse 71 01/27/19 11:31 Resp 17 01/27/19 11:31 BP 123/85 01/27/19 11:31 Pulse Ox 99 01/27/19 11:31 - Medical History PMH: No Chronic Diseases Other Surgeries: Hysterectomy. Family History: States: Unknown Family Hx - Social History Hx Tobacco Use: No Hx Alcohol Use: Yes Hx Substance Use: No - Immunization History Hx Tetanus Toxoid Vaccination: No Hx Influenza Vaccination: No Hx Pneumococcal Vaccination: No Review Of Systems Constitutional: Positive for: Chills, Malaise (including arms and legs). Negative for: Fever, Weakness Gastrointestinal: Negative for: Nausea, Vomiting Neurological: Positive for: Headache. Negative for: Weakness, Numbness, Dizziness Physical Exam - Physical Exam Appears: Non-toxic, No Acute Distress Skin: Normal Color, Warm, Dry Head: Atraumatic, Normacephalic Eye(s): bilateral: Normal Inspection, PERRL, EOMI Neck: Normal ROM, Supple Chest: Symmetrical, No Deformity Cardiovascular: Rhythm Regular, No Murmur Respiratory: No Accessory Muscle Use, No Rales, No Rhonchi, No Wheezing Gastrointestinal/Abdominal: Soft, No Tenderness Extremity: Capillary Refill (<2 seconds) Neurological/Psych: Oriented x3, Normal Speech, Normal Cognition ED Course And Treatment O2 Sat by Pulse Oximetry: 99 (in RA) Medical Decision Making Medical Decision Making: Impression: 48 year old female presents to ED with complaint of head ache and generalized body aches including the arms and legs for the past 3 days. Plan: Anaprox PO Flexeril PO prior imaging on 08/2018 shows DJD in the neck Re-evaluation. Patient feels better. Discussed plan with patient who expresses understanding. All questions answered and there is agreement with the plan to discharge home with instructions. Patient stable for discharge. Return if symptoms persist or worsen. Disposition Counseled Patient/Family Regarding: Diagnosis, Need For Followup, Rx Given - Disposition Referrals: [facility] [Outside] Disposition: HOME/ ROUTINE Disposition Time: 13:09 Condition: STABLE Additional Instructions: Please reviewed Discharge handouts regarding Joint Pain and Headaches Continue Naprozen and Flexeril as instructed Follow up with PMD in 1-2 days Return to ED if symptoms worsen Prescriptions: Cyclobenzaprine [Flexeril] 5 mg PO TID PRN #30 tab PRN Reason: Muscle Spasm Naproxen [Naprosyn] 500 mg PO BID #30 tablet Instructions: Headache, Adult (DC), Joint Pain Forms: [employer] (Pashto) Print Language: MONGOLIAN - Clinical Impression Clinical Impression: Myalgia, Headache - PA / ESCROW OFFICER / Resident Statement MD/DO has reviewed & agrees with the documentation as recorded. (Sherry Kahn) - Scribe Statement The provider has reviewed the documentation as recorded by the Scribe (Sherry Kahn) All medical record entries made by the Scribe were at my direction and personally dictated by me. I have reviewed the chart and agree that the record accurately reflects my personal performance of the history, physical exam, medical decision making, and the department course for this patient. I have also personally directed, reviewed, and agree with the discharge instructions and disposition.
== END 2019-01-27 13:18 | disposition home or self-care (01) ==
LOC: C.ER 11:15
DX: R51 Headache (principal); M79.10 Myalgia, unspecified site